=== PATIENT | male | born 1980 | race American Indian/Alaskan Native ===

== ENCOUNTER 2016-10-18 08:49 | Emergency (ER) | payer BC ==
[2016-10-18 09:15] VITALS: BP 120/83
--- NOTE | 2016-10-18 11:17 | Emergency Department Report ---
Abscess Boil HPI - HPI Chief Complaint: Skin/Abscess/Foreign Body Stated Complaint: FOLLOW UP/FEVER Time Seen by Provider: 10/18/16 11:05 Duration: 1 Week Location: Other (scrotum) Severity: Mild History: Yes Pain, No Fever, No Purulent Drainage, No Numbness, No Foreign Body , No Previous History, No Insect Bite HPI: Pt here for wound check from abscess on scrotum. Improved and is on abx as well. Reports chills last night and that he has some cold symptoms. Home Medications: Previous Rx's Medication Instructions Recorded Last Taken Type Ibuprofen [Motrin 800 MG tab] 800 mg PO Q8HR PRN #20 tablet 10/14/16 Unknown Rx Sulfamethoxazole/Trimethoprim 1 each PO BID #20 tablet 10/14/16 Unknown Rx [Bactrim DS TAB] Benzonatate 200 mg PO Q8H #15 capsule 10/18/16 Unknown Rx Allergies/Adverse Reactions: Allergies Allergy/AdvReac Type Severity Reaction Status Date / Time No Known Allergies Allergy Unverified 10/14/16 11:29 ED Review of Systems ROS: Stated complaint: FOLLOW UP/FEVER Other details as noted in HPI Constitutional: chills. denies: fever Eyes: denies: eye pain, eye discharge, vision change ENT: congestion. denies: ear pain, throat pain Respiratory: cough. denies: shortness of breath, wheezing Cardiovascular: denies: chest pain, palpitations Endocrine: no symptoms reported Gastrointestinal: denies: abdominal pain, nausea, diarrhea Genitourinary: denies: urgency, dysuria Musculoskeletal: denies: back pain, joint swelling, arthralgia Skin: denies: rash, lesions Neurological: denies: headache, weakness, paresthesias Psychiatric: denies: anxiety, depression Hematological/Lymphatic: denies: easy bleeding, easy bruising ED Past Medical Hx - Past Medical History Previous Medical History?: No - Surgical History Past Surgical History?: No - Social History Smoking Status: Current Every Day Smoker Substance Use Type: Alcohol - Medications Home Medications: Home Medications Medication Instructions Recorded Confirmed Last Taken Type Ibuprofen [Motrin 800 MG tab] 800 mg PO Q8HR PRN #20 tablet 10/14/16 Unknown Rx Sulfamethoxazole/Trimethoprim 1 each PO BID #20 tablet 10/14/16 Unknown Rx [Bactrim DS TAB] Benzonatate 200 mg PO Q8H #15 capsule 10/18/16 Unknown Rx ED Abscess Boil Physical Exam - Exam General: Vital signs noted. No distress. Alert and acting appropriately. ENT normal. Lungs clear, heart RRR. Size: 2 cm Exam: Yes Tenderness, Yes Normal Neurologic Exam, Yes Normal Circulation, No Fluctuance, No Surrounding Cellulites/Erythema, No Lymphangitis, No Crepitation , No Heart Murmur Exam: Improving scrotal abscess ED Course Vital Signs 10/18/16 09:09 Temperature 98.6 F Pulse Rate 91 H Respiratory 16 Rate Blood Pressure 120/83 O2 Sat by Pulse 100 Oximetry - Reevaluation(s) Reevaluation #1: 10/18/16 11:15 NAD, stable for d/c. Critical care attestation.: If time is entered above; I have spent that time in minutes in the direct care of this critically ill patient, excluding procedure time. ED Medical Decision Making - Medical Decision Making Pt with improving abscess and viral URI. Follow with PCP. - Differential Diagnosis viral uri, abscess ED Disposition Clinical Impression: Scrotal abscess, Viral URI with cough Disposition: DISCHARGED TO HOME OR SELFCARE Is pt being admited?: No Condition: Good Instructions: Upper Respiratory Infection (ED) Prescriptions: Benzonatate 200 mg PO Q8H #15 capsule Referrals: PRIMARY CARE, [Primary Care Provider] - 3-5 Days Time of Disposition: 11:16
== END 2016-10-18 11:37 | disposition home or self-care (01) ==
LOC: ED 08:49
DX: N49.2 Inflammatory disorders of scrotum (principal); J06.9 Acute upper respiratory infection, unspecified; R05 Cough; F17.200 Nicotine dependence, unspecified, uncomplicated
CPT/HCPCS: 99282

== ENCOUNTER 2021-03-10 14:10 | Emergency (ER) | payer SELFPAY ==
[2021-03-10 14:53] VITALS: BP 145/101
--- NOTE | 2021-03-10 16:12 | Emergency Department Report ---
- General Chief Complaint: Upper Respiratory Infection Stated Complaint: SEVERE SINUS PAIN Time Seen by Provider: 03/10/21 15:46 Source: patient Mode of arrival: Ambulatory Limitations: No Limitations - History of Present Illness Initial Comments: Patient is a 40-year-old male presents emergency room with complaints of sinus pressure that began a week ago. He has associated headache, rhinorrhea, congestion. He states he recently started a new job and they do not have AC and they frequently run fans. He states he believes the fan is drying him out. He denies any fever, nausea, vomiting, diarrhea, cough, shortness of breath, chest pain abdominal pain. No known sick contacts or recent travel. No past medical history or allergies to medications. - Related Data Previous Rx's Medication Instructions Recorded Last Taken Type Ibuprofen [Motrin 800 MG tab] 800 mg PO Q8HR PRN #20 tablet 10/14/16 Unknown Rx Sulfamethoxazole/Trimethoprim 1 each PO BID #20 tablet 10/14/16 Unknown Rx [Bactrim DS TAB] Benzonatate 200 mg PO Q8H #15 capsule 10/18/16 Unknown Rx Amoxicillin/Potassium Clav 1 each PO BID 10 Days #20 tablet 03/10/21 Unknown Rx [Augmentin 875-125 Tablet] Fluticasone [Flonase] 1 spray NS QDAY #1 bottle 03/10/21 Unknown Rx guaiFENesin ER [Mucinex ER] 600 mg PO Q12H #14 tablet.er 03/10/21 Unknown Rx Allergies Allergy/AdvReac Type Severity Reaction Status Date / Time No Known Allergies Allergy Verified 03/10/21 14:50 ED Review of Systems ROS: Stated complaint: SEVERE SINUS PAIN Other details as noted in HPI Comment: All other systems reviewed and negative ED Past Medical Hx - Past Medical History Previous Medical History?: No - Surgical History Past Surgical History?: No - Social History Smoking Status: Current Every Day Smoker Substance Use Type: Alcohol - Medications Home Medications: Home Medications Medication Instructions Recorded Confirmed Last Taken Type Ibuprofen [Motrin 800 MG tab] 800 mg PO Q8HR PRN #20 tablet 10/14/16 Unknown Rx Sulfamethoxazole/Trimethoprim 1 each PO BID #20 tablet 10/14/16 Unknown Rx [Bactrim DS TAB] Benzonatate 200 mg PO Q8H #15 capsule 10/18/16 Unknown Rx Amoxicillin/Potassium Clav 1 each PO BID 10 Days #20 tablet 03/10/21 Unknown Rx [Augmentin 875-125 Tablet] Fluticasone [Flonase] 1 spray NS QDAY #1 bottle 03/10/21 Unknown Rx guaiFENesin ER [Mucinex ER] 600 mg PO Q12H #14 tablet.er 03/10/21 Unknown Rx ED Physical Exam - General Limitations: No Limitations General appearance: alert, in no apparent distress - Head Head exam: Present: atraumatic, normocephalic - Eye Eye exam: Present: normal appearance - ENT ENT exam: Present: normal orophraynx, mucous membranes moist, TM's normal bilaterally, normal external ear exam, other (mucus drainage in the left naris, there is left maxillary ttp) - Respiratory Respiratory exam: Present: normal lung sounds bilaterally. Absent: respiratory distress, wheezes, rales, rhonchi, stridor, chest wall tenderness, accessory muscle use, decreased breath sounds, prolonged expiratory - Cardiovascular Cardiovascular Exam: Present: regular rate, normal rhythm, normal heart sounds. Absent: systolic murmur, diastolic murmur, rubs, gallop - Neurological Exam Neurological exam: Present: alert, oriented X3 - Psychiatric Psychiatric exam: Present: normal affect, normal mood - Skin Skin exam: Present: warm, dry, intact ED Course Vital Signs 03/10/21 14:52 Temperature 98.4 F Pulse Rate 62 Respiratory 20 Rate Blood Pressure 145/101 O2 Sat by Pulse 99 Oximetry ED Medical Decision Making - Medical Decision Making Patient is a 40-year-old male presents emergency room with complaints of sinus pressure that began a week ago. He has associated headache, rhinorrhea, congestion. He states he recently started a new job and they do not have AC and they frequently run fans. He states he believes the fan is drying him out. He denies any fever, nausea, vomiting, diarrhea, cough, shortness of breath, chest pain abdominal pain. No known sick contacts or recent travel. No past medical history or allergies to medications. vss. on exam: mucus drainage in the left naris, there is left maxillary ttp. Examination very consistent with acute sinusitis. Given that symptoms have been ongoing for 7 days and do not appear to be improving, patient will be covered with antibiotics. Patient given prescription for medications. Advised patient Please take medication as prescribed. may take tylenol or ibuprofen as needed for pain. Increase your water intake. Follow-up with your primary care doctor. Return to emergency room for any new or worse symptoms. May use a humidifier or vaporizer. Critical care attestation.: If time is entered above; I have spent that time in minutes in the direct care of this critically ill patient, excluding procedure time. ED Disposition Clinical Impression: Acute sinusitis Qualifiers: Sinusitis location: maxillary Recurrence: non-recurrent Qualified Code(s): J01.00 - Acute maxillary sinusitis, unspecified Disposition: TO HOME OR SELFCARE Is pt being admited?: No Does the pt Need Aspirin: No Condition: Stable Instructions: Sinusitis, Adult, [id number] Additional Instructions: Please take medication as prescribed. may take tylenol or ibuprofen as needed for pain. Increase your water intake. Follow-up with your primary care doctor. Return to emergency room for any new or worse symptoms. May use a humidifier or vaporizer. Prescriptions: Amoxicillin/Potassium Clav [Augmentin 875-125 Tablet] 1 each PO BID 10 Days #20 tablet Fluticasone [Flonase] 1 spray NS QDAY #1 bottle guaiFENesin ER [Mucinex ER] 600 mg PO Q12H #14 tablet.er Referrals: ABIODUN ESPOSITO MD [Staff Physician] - 3-5 Days [facility] [Provider Group] - 3-5 Days Time of Disposition: 16:11 Print Language: PUERTO RICAN
== END 2021-03-10 16:30 | disposition home or self-care (01) ==
LOC: ED 14:10
DX: J01.90 Acute sinusitis, unspecified (principal); F17.200 Nicotine dependence, unspecified, uncomplicated; Z72.89 Other problems related to lifestyle; Z79.899 Other long term (current) drug therapy
CPT/HCPCS: 99282